=== PATIENT | male | born 2000 | race African-American/Black ===

== ENCOUNTER 2019-08-28 06:58 | Emergency (ER) | payer OTHER ==
[~2019-08-28] VITALS: Ht 165.1 cm; Wt 71.0 kg
[2019-08-28 07:11] VITALS: BP 126/71
[2019-08-28] MEDS ORDERED: PROM5SYR2 PO (07:18)
[2019-08-28] MEDS ORDERED: PRED50TA PO (07:18)
--- NOTE | 2019-08-28 07:18 | PHYS DOC ---
Past History Past Medical History: No Pertinent History Past Surgical History: No Surgical History Alcohol Use: Occasionally Adult General Chief Complaint Chief Complaint: COUGH HPI HPI Patient is a 18-year-old male who presents with complaint of a cough x2 days duration with a mild sore throat secondary to drainage. No medications taken prior to arrival. No fever or chills. No recent travel or high risk exposures. Patient also complains of some very mild central abdominal pain with coughing. Review of Systems Review of Systems All other systems were reviewed and found to be within normal limits, except as documented in this note. Allergies Allergies Allergies Coded Allergies Type Severity Reaction Last Updated Verified No Known Drug Allergies 08/28/19 No Physical Exam Physical Exam Constitutional: Well developed, well nourished, no acute distress, non-toxic appearance. [] HENT: Normocephalic, atraumatic, bilateral external ears normal, oropharynx moist, no oral exudates, nose normal. [] Eyes: PERRLA, EOMI, conjunctiva normal, no discharge. [] Neck: Normal range of motion, no tenderness, supple, no stridor. [] Cardiovascular:Heart rate regular rhythm, no murmur [] Lungs & Thorax: Bilateral breath sounds clear to auscultation [] Abdomen: Bowel sounds normal, soft, no tenderness, no masses, no pulsatile masses. [] Skin: Warm, dry, no erythema, no rash. [] Back: No tenderness, no CVA tenderness. [] Extremities: No tenderness, no cyanosis, no clubbing, ROM intact, no edema. [] Neurologic: Alert and oriented X 3, normal motor function, normal sensory function, no focal deficits noted. [] Psychologic: Affect normal, judgement normal, mood normal. [] Current Patient Data Vital Signs Vital Signs Date Time Temp Pulse Resp B/P (MAP) Pulse Ox O2 Delivery O2 Flow Rate FiO2 08/28/19 07:11 97.9 56 18 126/71 (89) 99 Room Air EKG EKG [] Radiology/Procedures Radiology/Procedures [] Course & Med Decision Making Course & Med Decision Making Pertinent Labs and Imaging studies reviewed. (See chart for details) Examination is unremarkable. Given the patient's history and symptoms and examination I will start him on steroids and cough medication for viral bronchitis. Dragon Disclaimer Dragon Disclaimer This electronic medical record was generated, in whole or in part, using a voice recognition dictation system. Departure Departure: Impression: Primary Impression: Viral bronchitis Disposition: 01 HOME, SELF-CARE Condition: STABLE Referrals: BRET MENDOZA (PCP) Patient Instructions: Acute Bronchitis Scripts Promethazine HCl/Codeine (Prometh-Codein 6.25-10 mg/5 ml) 5 Ml Syrup 5 ML PO PRN Q4-6HRS PRN for cough MDD 30 Milliliter(s), #120 ML 0 Refills Prov: TAZ HORVATH DO 08/28/19 Prednisone (PREDNISONE) 50 Mg Tablet 50 MG PO DAILY for Bronchitis for 5 Days, #5 TAB Prov: TAZ HORVATH DO 08/28/19 TAZ HORVATH DO Aug 28, 2019 07:18
== END 2019-08-28 07:25 | disposition home or self-care (01) ==
LOC: ER 06:58
DX: J20.8 Acute bronchitis due to other specified organisms (principal)
CPT/HCPCS: 99283